=== PATIENT | female | born 2000 | race Hispanic/Latino ===

== ENCOUNTER 2020-11-24 17:13 | Day surgery (SDC) | payer BC ==
[2020-11-24] MEDS ORDERED: SUCCINYLCHOLINE 20 MG/ML (10 ML) IV ONE (18:19)
[2020-11-24] MEDS ORDERED: MIDAZOLAM HCL 2 MG/2 ML INJ ONE (18:20)
[2020-11-24] MEDS ORDERED: propofoL 200 MG/20 ML VIAL IV ONE (18:20)
[2020-11-24] MEDS ORDERED: FENTANYL CITR 100 MCG/2 ML ONE (18:20)
[2020-11-24] MEDS ORDERED: CIPROFLOXACIN 400mg IV 400 MG/200 ML BAG IV ONE (18:31)
--- NOTE | 2020-11-24 18:39 | P.BOP ---
Preoperative diagnosis: retained foreign body in rectum Postoperative diagnosis: same Primary procedure: EUA, Anoscopy, removal of foreign body Estimated blood loss: <5cc Specimen: FB metal Findings: FB Anesthesia: General Complications: None Transferred to: Recovery Room Condition: Good
[2020-11-24] MEDS ORDERED: Ringers Lactate 1,000 ML IV ONE (18:44)
[2020-11-24 18:48] VITALS: O2SAT 99
[2020-11-24 19:18] VITALS: BP 129/89; TEMP 97.5
--- NOTE | 2020-11-24 21:25 | OP ---
Date of Procedure: 11/24/2020 Surgeon: Yfn Beltre MD Preoperative Diagnosis: Retained foreign body in the rectum. Postoperative Diagnosis: Retained foreign body in the rectum. Procedure: Examination under anesthesia, anoscopy and removal of foreign body from the rectum. Specimen: Intact foreign body, consists of a metal object, , smooth, unbroken. Indications: This is the case of a 20-year-old patient with retained foreign body. She was using it during sexual intercourse. She came immediately to the [facility], was transferred to this [facility] for removal of foreign body that she cannot remove. The benefits, alternatives, and risks of exami nation under anesthesia, anoscopy, proctoscopy, possible resection, possible laparotomy, possible ost katy, and laparotomy fully explained to the patient which include, but not limited to infection, bleed ing, damage to adjacent structures, anesthesia complication, bowel perforation, NV and even . S he also understands this may not relieve her symptoms. She might need more than one surgical interve ntion. The. Procedure In Detail: The patient was brought to the operating room, placed in supine position. Anes thesia was done without complication. The patient was placed in lithotomy position with proper prote ction. Perianal area was prepped and draped in a sterile fashion. A time-out was called. At that m carleen, we proceeded to do rectal examination. We had this at the tip of her finger, so we were able to place the anoscope to help us evaluate the area of the rectum. We visualized the foreign body imm ediately. We were able to grab it with my fingers and removed it from the cavity. The patient veronica ated the procedure well. The anal area looks intact. There was some bleeding coming from the hemorr hoidal area. No evidence of hole in the rectum. At that moment, I proceeded to remove the anoscope. The patient was sent to recovery room in stable condition. Specimen was sent to the pathologist. Diagnosis: Retained foreign body in the rectum. Procedure: EUA, anoscopy, removal of a foreign body from the rectum. Disposition: Home. Activity: As tolerated. No heavy lifting. Remain on full liquid diet for 24 hours. If she develop s pain, come back to the ER. Otherwise in 1 week in my office. She preferred to go home. HM/MODL Voice ID: [id number] Report ID: [id number]
--- NOTE | 2020-11-24 23:07 | HP ---
Date of Admission: 11/24/2020 Diagnosis: Retained foreign body in the rectum. History Of Present Illness: This is the case of a 20-year-old patient, who was seen today in [facility] across the street after she came with the boyfriend. The patient stated that she has "butt plug" s tuck in her butt for about 30 minutes prior to arrival. She could not get it out. It is standstill and she was using for sexual pleasure and the boyfriend was involved in it. Allergies: NONE. Medications: None. Past Surgical History: None. Social History: She did use alcohol occasionally. Occasionally has a pot. She has no travel recent ly out of the area. Family History: Noncontributory. Review of Systems: No melena. No blood per rectum. Mild abdominal spasms and pain. Physical Examination: General: The patient is awake and alert. HEENT: Pupils equal and reactive. Anicteric. Neck: Supple. Chest: Clear. Breasts: Deferred. Abdomen: Soft and depressible. Rectal: Deferred. She is sober from the ER. Extremities: Good capillary refill. Laboratory Data: CAT scan shows retained foreign body in the rectum. Assessment: It is a 20-year-old patient with retained foreign body. She describes and showed me the picture of the foreign body. The patient will have examination under anesthesia, anoscopy, proctosc opy, possible laparotomy, possible resection, possible ostomy with benefits, alternatives, and risks including, but not limited to infection, bleeding, damage to adjacent structures, anesthesia complica tion, bowel perforation, AR, even . She also understands this may not relieve any symptoms. Sh e might need more than one surgical intervention. The OR team was called. We will proceed according ly. CAMARA/EFFIE Voice ID: [id number]
== END 2020-11-24 19:35 | disposition home or self-care (01) ==
LOC: RAD 17:13 → DS 19:35
PROVIDERS: ATTEND Surgery
PROC: 0DJD8ZZ Inspection of Lower Intestinal Tract, Via Natural or Artificial Opening Endoscopic (ICD-10-PCS; principal; 2020-11-24 17:30)
DX: T18.5XXA Foreign body in anus and rectum, initial encounter (principal)
CPT/HCPCS: 88300; 46608; J2704; J2250; J3010; J7120; J0744; J0330